=== PATIENT | male | born 1965 | race Caucasian/White ===

== ENCOUNTER → 2019-02-13 | Outpatient (CLI) | payer BC, SELFPAY ==
[2019-02-13 14:34] VITALS: BMI 32.5
--- NOTE | 2019-02-13 14:59 | RAD_ITS ---
STUDY: X-RAY - LEFT ELBOW REASON FOR EXAM: Male, 53 years old. Posterior elbow pain status post fall. TECHNIQUE: 3 view(s) of the elbow. COMPARISON: None. FINDINGS: No fracture or dislocation. No obvious joint effusion. Small olecranon enthesophyte at the triceps insertion. The soft tissue structures are unremarkable. RAD/Elbow min 3 Views IMPRESSION: Minimal spurring, otherwise negative study. Electronically Signed: Bev Gonzalez MD at 17:06 EDT Tel , Service support ,
== END | disposition home or self-care (01) ==
LOC: HPRAD 14:58
PROVIDERS: Referring Provider Physician Assistant Surgical; Visit Provider Physician Assistant Surgical
DX: S50.02XA Contusion of left elbow, initial encounter (principal)
CPT/HCPCS: 73080